=== PATIENT | female | born 1980 | race Asian ===

== ENCOUNTER 2019-10-08 18:41 | Emergency (ER) | payer OTHER ==
[~2019-10-08] VITALS: Ht 147.3 cm; Wt 70.8 kg
[2019-10-08 18:53] VITALS: Ht 147.3 cm; Wt 70.8 kg
[2019-10-08 20:09] LABS: CALCIUM 8.3 mg/dL (8.5-10.1); CARBON DIOXIDE 28.3 mmol/L (21-32); CHLORIDE SERUM 102 mmol/L (98-107); CREATININE SERUM 0.8 mg/dL (0.6-1.0); GFR1 > 60 mL/min; GLUCOSE SERUM 79 mg/dL (74-106); SODIUM SERUM 138 mmol/L (136-145)
[2019-10-08 20:12] LABS: ALKALINE PHOSPHATASE 101 U/L (46-116); ALT/SGPT 25 U/L (14-59); AST/SGOT 19 U/L (15-37); BILIRUBIN TOTAL 0.34 mg/dL (0.20-1.00); TOTAL PROTEIN, SERUM 7.7 g/dL (6.4-8.2)
[2019-10-08 20:34] LABS: BASOPHIL % 0.3 % (0-2); PLATELET COUNT 234 x10^3mcL (130-400)
[2019-10-08 21:21] VITALS: BP 101/68
== END 2019-10-08 21:21 | disposition home or self-care (01) ==
LOC: ED 18:41
PROVIDERS: Emergency Medicine
DX: R21 Rash and other nonspecific skin eruption (principal)
CPT/HCPCS: 36415